=== PATIENT | female | born 1960 | race Caucasian/White ===

== ENCOUNTER 2018-08-04 11:32 | Emergency (ER) | payer BC ==
[2018-08-04 11:45] VITALS: RESP 18
[2018-08-04] MEDS ORDERED: Sodium Chloride 0.9% 1,000 ML IV STA ×2 (11:53→12:52)
[2018-08-04] MEDS ORDERED: Insulin Regular 1 UNITS/0.01 ML ML SC STA (11:53)
[2018-08-04] MEDS ORDERED: Insulin Regular 1 UNITS/0.01 ML ML ONE (12:02)
--- NOTE | 2018-08-04 12:23 | ED PDOC ---
Arrival/HPI - General Chief Complaint: High Blood Sugar Historian: Patient - History of Present Illness Narrative History of Present Illness (Text): 08/04/18 11:53 57 y/o F, with past medical history of diabetes, presents to the ED from Urgent Care for evaluation of hyperglycemia since prior to arrival. Patient states visiting Urgent Care for evaluation of vaginal itching this morning and was made aware of elevated blood sugar of 562 at the office. Upon arrival to the ED, patient has a blood sugar of 425 with no associated medical complaints. Patient informs vaginal itching and dysuria for past couple day but denies any other complaints. Patient informs history of vaginal yeast infection. Patient denies any fevers, chills, headache, dizziness, chest pain, shortness of breath, dyspnea on exertion, cough, abdominal pain, nausea, vomiting, diarrhea, back pain, neck pain, or any other complaints. Time/Duration: Prior to Arrival Symptom Onset: Gradual Symptom Course: Unchanged Activities at Onset: Light Context: Other (Transferred from Urgent Care) Past Medical History - Provider Review Nursing Documentation Reviewed: Yes - Endocrine/Metabolic Hx Diabetes Mellitus Type 2: Yes - Psychiatric Hx Substance Use: No - Anesthesia Hx Anesthesia: No Hx Anesthesia Reactions: No Hx Malignant Hyperthermia: No Family/Social History - Physician Review Nursing Documentation Reviewed: Yes Family/Social History: No Known Family HX Smoking Status: Never Smoked Hx Alcohol Use: No Hx Substance Use: No Allergies/Home Meds Allergies/Adverse Reactions: Allergies No Known Allergies Allergy (Verified 08/04/18 11:33) Review of Systems - Physician Review All systems were reviewed & negative as marked: Yes - Review of Systems Constitutional: absent: Fevers Respiratory: absent: SOB, Cough Cardiovascular: absent: Chest Pain Gastrointestinal: absent: Abdominal Pain, Diarrhea, Nausea, Vomiting Genitourinary Female: Dysuria, Other (Vaginal discharge). absent: Urine Output Changes Musculoskeletal: absent: Back Pain, Neck Pain Skin: absent: Rash Neurological: absent: Headache, Dizziness Endocrine: Other (Elevated blood sugar) Psychiatric: absent: Anxiety Physical Exam Vital Signs Reviewed: Yes Vital Signs Temp Pulse Resp BP Pulse Ox 08/04/18 11:38 97.7 F 75 18 107/71 96 Temperature: Afebrile Blood Pressure: Normal Pulse: Regular Respiratory Rate: Normal Appearance: Positive for: Well-Appearing, Non-Toxic, Comfortable Pain Distress: None Mental Status: Positive for: Alert and Oriented X 3 Finger Stick Blood Glucose: 425 - Systems Exam Head: Present: Atraumatic, Normocephalic Pupils: Present: PERRL Extroacular Muscles: Present: EOMI Conjunctiva: Present: Normal Neck: Present: Normal Range of Motion Respiratory/Chest: Present: Clear to Auscultation, Good Air Exchange. No: Respiratory Distress, Accessory Muscle Use Cardiovascular: Present: Regular Rate and Rhythm, Normal S1, S2. No: Murmurs Abdomen: No: Tenderness, Distention, Peritoneal Signs Back: Present: Normal Inspection Upper Extremity: Present: Normal Inspection. No: Cyanosis, Edema Lower Extremity: Present: Normal Inspection. No: Edema Neurological: Present: GCS=15, CN II-XII Intact, Speech Normal Skin: Present: Warm, Dry, Normal Color. No: Rashes Psychiatric: Present: Alert, Oriented x 3, Normal Insight, Normal Concentration Medical Decision Making ED Course and Treatment: 08/04/18 11:52 Impression: 57 year old male presents to the ED for evaluation of elevated blood sugar. Differential Diagnosis included but are not limited to: -- Hyperglycemia Plan: -- VBG -- Labs -- Chest X-ray -- Insulin -- IV fluids -- Urinalysis -- Reassess and disposition Prior Visits: Notes and results from previous visits were reviewed. Progress Notes: - Lab Interpretations Lab Results: 08/04/18 12:10 08/04/18 12:10 Lab Results 08/04/18 14:03: POC Glucose (mg/dL) 101 08/04/18 13:46: Urine Color Yellow, Urine Appearance Clear, Urine pH 6.0, Ur Specific Cope 1.025, Urine Protein Negative, Urine Glucose (UA) >=1000, Urine Ketones Negative, Urine Blood Negative, Urine Nitrate Negative, Urine Bilirubin Negative, Urine Urobilinogen 0.2, Ur Leukocyte Esterase Negative 08/04/18 12:10: Sodium 138, Chloride 102, Potassium 3.9, Carbon Dioxide 24, Anion Gap 16, BUN 12, Creatinine 0.6 L, Est GFR ( Amer) > 60, Est GFR (Non-Af Amer) > 60, Random Glucose 350 H*, Calcium 10.0, Magnesium 2.0, Total Bilirubin 0.2, AST 18, ALT 27, Alkaline Phosphatase 91, Total Protein 7.8, Albumin 4.6, Globulin 3.2, Albumin/Globulin Ratio 1.5 08/04/18 12:10: WBC 5.5, RBC 4.32, Hgb 12.8, Hct 37.6, MCV 87.0, MCH 29.6, MCHC 34.0, RDW 12.8, Plt Count 231, MPV 12.7 H, Gran % 60.6, Lymph % (Auto) 30.8, [place] % (Auto) 4.6, Eos % (Auto) 3.6, Baso % (Auto) 0.4, Gran # 3.33, Lymph # (Auto) 1.7, [place] # (Auto) 0.3, Eos # (Auto) 0.2, Baso # (Auto) 0.02 08/04/18 12:10: pO2 124 H, VBG pH 7.39, VBG pCO2 41.0, VBG HCO3 24.8, VBG Total CO2 26.1, VBG O2 Sat (Calc) 98.6 H, VBG Base Excess -0.2 L, VBG Potassium 4.2, Sodium 136.0, Chloride 102.0, Glucose 383 H, Lactate 2.9 H, FiO2 21.0, Crit Value Called To Angie peñaloza, Crit Value Called By Rain, Blood Gas Notified Time 1247, Venous Blood Potassium 4.2 08/04/18 11:43: POC Glucose (mg/dL) 425 H* I have reviewed the lab results: Yes - RAD Interpretation Narrative RAD Interpretations (Text): 08/04/18 14:12 Chest X-ray reviewed by radiologist, shows: FINDINGS: LUNGS: No active pulmonary disease. PLEURA: No significant pleural effusion identified, no pneumothorax apparent. CARDIOVASCULAR: No aortic atherosclerotic calcification present. Normal cardiac size. No pulmonary vascular congestion. OSSEOUS STRUCTURES: No significant abnormalities. VISUALIZED UPPER ABDOMEN: Normal. OTHER FINDINGS: None. IMPRESSION: No active disease. Radiology Orders: 08/04/18 11:53 CHEST PORTABLE [RAD] Stat Architecture Faculty Member: Radiologist - Medication Orders Current Medication Orders: Fluconazole (Diflucan) 150 mg PO ONCE ONE; Protocol Stop: 08/04/18 12:10 Sodium Chloride (Sodium Chloride 0.9%) 1,000 mls @ 999 mls/hr IV .Q1H1M STA Stop: 08/04/18 12:53 Discontinued Medications Insulin Human Regular (Humulin R) 8 units SC STAT STA Stop: 08/04/18 11:54 - Scribe Statement The provider has reviewed the documentation as recorded by the Scribe Simone Patel. All medical record entries made by the Scribe were at my direction and personally dictated by me. I have reviewed the chart and agree that the record accurately reflects my personal performance of the history, physical exam, medical decision making, and the department course for this patient. I have also personally directed, reviewed, and agree with the discharge instructions and disposition. Disposition/Present on Arrival - Present on Arrival Any Indicators Present on Arrival: No History of DVT/PE: No History of Uncontrolled Diabetes: No Urinary Catheter: No History of Decub. Ulcer: No History Surgical Site Infection Following: None - Disposition Have Diagnosis and Disposition been Completed?: Yes Diagnosis: Hyperglycemia, Vulvovaginal candidiasis Disposition: HOME/ ROUTINE Disposition Time: 14:08 Patient Plan: Discharge Patient Problems: Current Active Problems Problem Status Onset Hyperglycemia Acute Vulvovaginal candidiasis Acute Discharge Instructions (ExitCare): Vaginal Yeast Infection (DC), Hyperglycemia, Adult (DC) Print Language: FAROESE Additional Instructions: All medical record entries made by the Scribe were at my direction and personally dictated by me. I have reviewed the chart and agree that the record accurately reflects my personal performance of the history, physical exam, medical decision making, and the department course for this patient. I have also personally directed, reviewed, and agree with the discharge instructions and disposition. Please follow up in clinic or with your physician in 2-3 days Please monitor your blood sugars as closely as possible Referrals: Theresa Rodrigues MD [Primary Care Provider] - Follow up with primary Forms: [employer] ([place])
[2018-08-04 12:35] LABS: BASO # 0.02 K/mm3 (0.0-2.0); BASO % 0.4 % (0.0-3.0); EOS # 0.2 (0.0-0.7); EOS % 3.6 % (1.5-5.0); GRAN # 3.33 (1.4-6.5); GRAN % 60.6 % (50.0-68.0); HEMOGLOBIN 12.8 g/dL (12.0-16.0); LYMPH # 1.7 (1.2-3.4); LYMPH % 30.8 % (22.0-35.0); MEAN CORPUSCULAR HEMOGLOBIN 29.6 pg (25.0-35.0); MEAN PLATELET VOLUME 12.7 fl (7.0-11.0); MONO # 0.3 (0.1-0.6); MONO % 4.6 % (1.0-6.0); RBC 4.32 10^6/uL (3.5-6.1); RED CELL DISTRIBUTION WIDTH 12.8 % (11.5-14.5); WHITE BLOOD COUNT 5.5 10^3/uL (4.5-11.0)
[2018-08-04 12:47] LABS: VENOUS BLOOD GAS BASE EXCESS -0.2 mmol/L (0.0-2.0); VENOUS BLOOD GAS PO2 124 mm/Hg (30-55); VENOUS BLOOD PH 7.39 (7.32-7.43)
[2018-08-04 12:59] LABS: ALB/GLOB RATIO 1.5 (1.1-1.8); ALBUMIN 4.6 g/dL (3.0-4.8); ALT/SGPT 27 U/L (7-56); AST/SGOT 18 U/L (14-36); BLOOD UREA NITROGEN 12 mg/dL (7-21); GFR NON-AFRICAN AMERICAN > 60
--- NOTE | 2018-08-04 13:48 | RAD ---
Date of service: 08/04/2018 HISTORY: hyperglycemia COMPARISON: No prior. FINDINGS: LUNGS: No active pulmonary disease. PLEURA: No significant pleural effusion identified, no pneumothorax apparent. CARDIOVASCULAR: No aortic atherosclerotic calcification present. Normal cardiac size. No pulmonary vascular congestion. OSSEOUS STRUCTURES: No significant abnormalities. VISUALIZED UPPER ABDOMEN: Normal. OTHER FINDINGS: None. IMPRESSION: No active disease.
[2018-08-04 13:51] LABS: URINE BILIRUBIN NEGATIVE (NEGATIVE); URINE BLOOD NEGATIVE (NEGATIVE); URINE GLUCOSE (UA) >=1000 mg/dL (NEGATIVE); URINE LEUKOCYTE ESTERASE NEGATIVE Leu/uL (NEGATIVE); URINE PROTEIN NEGATIVE mg/dL (<30 mg/dL); URINE UROBILINOGEN 0.2 E.U./dL (<1 E.U./dL)
[2018-08-04 13:52] LABS: URINE APPEARANCE CLEAR (CLEAR); URINE COLOR YELLOW (YELLOW)
[2018-08-04 14:47] VITALS: BP 107/53; PULSE 69; O2SAT 98
[2018-08-04 15:19] VITALS: TEMP 97.9
== END 2018-08-04 14:54 | disposition home or self-care (01) ==
LOC: ED 11:32
DX: E11.65 Type 2 diabetes mellitus with hyperglycemia (principal); B37.3 Candidiasis of vulva and vagina
CPT/HCPCS: 71045; 80053; 81003; 82803; 82948; 83735; 85025; 96360; 96361; 99284; J7030